=== PATIENT | female | born 1960 | race Caucasian/White ===

== ENCOUNTER 2020-04-27 09:30 | Inpatient (IN) | payer OTHER ==
[2020-04-27] MEDS ORDERED: dexAMETHasone 10 MG/ML VIAL ONE (10:21)
[2020-04-27] MEDS ORDERED: MAGNESIUM SULFATE 1 gm IVPB 1 GM/100 ML BAG IV ONE (10:22)
[2020-04-27] MEDS ORDERED: ALBUTEROL 2.5 MG/3 ML NEB SOL ONE (10:22)
[2020-04-27] MEDS ORDERED: IPRATROPIUM BROM 0.5MG/2.5ML ONE (10:22)
[2020-04-27 10:28] LABS: Absolute Lymphocytes (CBC) 0.5 K/uL (0.7-4.9); Basophils % 0.1 % (0-1.3); Hematocrit 42.1 % (36.0-45.0); Lymphocytes % 3.4 % (15.3-44.8); MPV 8.7 fL (7.6-11.3); RBC Red Blood Cell Count 4.78 M/uL (3.86-4.86)
[2020-04-27 10:54] LABS: Albumin 2.9 g/dL (3.4-5.0); Bilirubin Total 0.6 mg/dL (0.2-1.0); C-Reactive Protein 51.7 mg/L (<3.00); Protein, Total 7.6 g/dL (6.4-8.2)
--- NOTE | 2020-04-27 11:09 | RAD REPORT ---
EXAM DESCRIPTION: RAD - Chest Single View - 04/27/2020 10:58 am CLINICAL HISTORY: SOB, wheezing, cough COMPARISON: None TECHNIQUE: AP portable chest image was obtained 04/27/2020 10:58 am . FINDINGS: No focal mass or consolidation. Interstitial markings are prominent on this baseline patte rn which could be interstitial pneumonia or interstitial edema. Heart and vasculature are normal. No measurable pleural effusion and no pneumothorax. No acute bony abnormality seen. No acute aortic find ings suspected. IMPRESSION: Baseline examination showing interstitial edema or interstitial infiltrate pattern.
[2020-04-27 11:18] LABS: Blood Morphology Comment NOT SEEN (NOT SEEN); Platelet Estimate ADEQ; White Blood Cell Scan OK (OK)
--- NOTE | 2020-04-27 11:55 | EDPHYS ---
Physician Documentation [facility] Name: Miracle Spear Age: 60 yrs Sex: Female : 1960 Arrival Date: 04/27/2020 Time: 09:33 Bed 8 Private MD: Zack Siu V ED Physician Misha Newman HPI: 04/27 09:42 This 60 yrs old Female presents to ER via Wheelchair with complaints of jmm COVID+, Low O2. 09:42 The patient has shortness of breath at rest. Onset: The symptoms/episode began/occurred jmm gradually, 1.5 week(s) ago. Duration: The symptoms are continuous, and are steadily getting worse. The patient's shortness of breath is aggravated by exertion, light activity. Associated signs and symptoms: Pertinent positives: non-productive cough. This is a 60 year old female that presents to the ED with complaints of progressively worsening shortness of breath. Prescribed oral steroids and albuterol with little relief. Historical: - Allergies: 09:56 No Known Allergies; iw - Home Meds: 09:56 metformin 500 mg Oral Tb24 2 tabs 2 times per day [Active]; omeprazole 20 mg Oral cpDR iw 1 cap once daily [Active]; losartan 25 mg oral tab once daily [Active]; levothyroxine 125 mcg tab 1 tab once daily [Active]; bisoprolol-hydrochlorothiazide 10-6.25 mg oral tab 1 tab once daily [Active]; atorvastatin 40 mg oral tab 1 tab once daily [Active]; - PSHx: 09:56 None; iw - Immunization history:: Adult Immunizations not up to date. - Social history:: Smoking status: Patient denies any tobacco usage or history of. ROS: 09:42 Constitutional: Positive for body aches, chills, fatigue. jmm 09:42 Respiratory: Positive for cough, shortness of breath. 09:42 All other systems are negative. Exam: 09:42 Constitutional: This is a well developed, well nourished patient who is awake, alert, jmm and in no acute distress. Head/Face: atraumatic. Eyes: EOMI, no conjunctival erythema appreciated ENT: Moist Mucus Membranes Neck: Trachea midline, Supple Chest/axilla: Normal chest wall appearance and motion. Cardiovascular: Regular rate and rhythm. No edema appreciated Respiratory: Normal respirations, no respiratory distress appreciated Abdomen/GI: Non distended, soft Back: Normal ROM Skin: General appearance color normal MS/ Extremity: Moves all extremities, no obvious deformities appreciated, no edema noted to the lower extremities Neuro: Awake and alert, normal gait Psych: Behavior is normal, Mood is normal, Patient is cooperative and pleasant Vital Signs: 09:56 BP 154 / 73; Pulse 72; Resp 20 S; Temp 97.8(TE); Pulse Ox 86% on R/A; Weight 104.33 kg; iw Height 5 ft. 7 in. (170.18 cm); 10:50 BP 147 / 83; Pulse 73; Resp 21; Pulse Ox 98% on Nebulizer Mask; jl7 11:35 Pulse Ox 85% on R/A; iw 11:57 BP 141 / 69; Pulse 77; Resp 18; Pulse Ox 96% on 2 lpm NC; ph 13:17 BP 142 / 70; Pulse 76; Resp 20; Temp 98.2; Pulse Ox 97% on 2 lpm NC; ph 09:56 Body Mass Index 36.02 (104.33 kg, 170.18 cm) iw MDM: 09:42 Patient medically screened. marin 11:53 Data reviewed: vital signs, nurses notes. Counseling: I had a detailed discussion with aydin the patient and/or guardian regarding: the historical points, exam findings, and any diagnostic results supporting the discharge/admit diagnosis, lab results, radiology results, the need for further work-up and treatment in the hospital. 04/27 09:56 Order name: CBC with Diff; Complete Time: 11:24 [facility] 04/27 09:56 Order name: CMP; Complete Time: 11:24 [facility] 04/27 09:56 Order name: CRP; Complete Time: 11:24 [facility] 04/27 09:56 Order name: D-Dimer; Complete Time: 11:24 [facility] 04/27 09:56 Order name: Blood Culture Adult (2) [facility] 04/27 09:56 Order name: Procalcitonin; Complete Time: 11:58 [facility] 04/27 09:56 Order name: Lactate; Complete Time: 11:24 [facility] 04/27 10:35 Order name: Chest Single View XRAY; Complete Time: 11:24 [facility] 04/27 11:18 Order name: CBC Smear Scan; Complete Time: 11:24 [facility] 04/27 12:05 Order name: Troponin I [facility] 04/27 12:05 Order name: Troponin I [facility] 04/27 09:56 Order name: Saline Lock; Complete Time: 10:49 [facility] 04/27 12:02 Order name: CONS Physician Consult [facility] 04/27 13:05 Order name: Labs - recollect needed: lactate sepsis due; Complete Time: 13:15 iw Administered Medications: 09:40 Drug: Decadron - Dexamethasone 10 mg Route: IVP; Site: right wrist; jl7 13:15 Follow up: Response: No adverse reaction ph 10:46 Drug: Magnesium Sulfate 1 grams Route: IVPB; Infused Over: 1 hrs; Site: right wrist; jl7 11:50 Follow up: Response: No adverse reaction; IV Status: Completed infusion; IV Intake: ph 100ml 10:46 Drug: DuoNeb (albuterol 2.5 mg, ipratropium 0.5 mg) (3:1) (2.5 mg - 0.5 mg) 3 ml Route: jl7 Nebulizer; 13:16 Follow up: Response: No adverse reaction ph Disposition: 04/28 09:39 Co-signature as Attending Physician, Misha Newman MD I agree with the assessment and [facility] plan of care. Disposition: 04/27/20 11:55 Hospitalization ordered by Zack Siu for Observation. Preliminary diagnosis are Coronavirus infection, unspecified, Hypoxia. - Bed requested for Telemetry/MedSurg (observation). - Status is Observation. ph - Condition is Stable. - Problem is new. - Symptoms are unchanged. Signatures: Dispatcher [employer] [facility] Tamiko Cazares, RN Misha Phelps MD MD cha Mickail, Joel, PA PA [facility] Ainsley Monroe, RN Maria Esther Clinton RN Chris Sullivan ph RN RN jl7 Corrections: (The following items were deleted from the chart) 04/27 12:25 11:55 Hospitalization Ordered by Zack Siu MD for Observation. Preliminary diagnosis dw is Coronavirus infection, unspecified; Hypoxia. Bed requested for Telemetry/MedSurg (observation). Status is Observation. Condition is Stable. Problem is new. Symptoms are unchanged. [facility] 13:18 12:25 04/27/2020 11:55 Hospitalization Ordered by Zack Siu MD for Observation. ph Preliminary diagnosis is Coronavirus infection, unspecified; Hypoxia. Bed requested for Telemetry/MedSurg (observation). Status is Observation. Condition is Stable. Problem is new. Symptoms are unchanged. dw
--- NOTE | 2020-04-27 11:55 | ER ---
Nurse's Notes [facility] Name: Miracle Spear Age: 60 yrs Sex: Female : 1960 Arrival Date: 04/27/2020 Time: 09:33 Bed 8 Private MD: Zack Siu V Diagnosis: Coronavirus infection, unspecified;Hypoxia Presentation: 04/27 09:50 Chief complaint: Patient states: tested positive for COVID last Tues at [place] , has iw been having fever , SOB, wheezing O2 sat has been in the 80's at home , feeling more SOB. Coronavirus screen: cough unrelated to allergies, shortness of breath, Client presents with at least one sign or symptom that may indicate coronavirus-19. Standard/surgical mask placed on the client. Provider contacted for isolation considerations. Client reports previous positive COVID test result. Ebola Screen: Patient negative for fever greater than or equal to 101.5 degrees Fahrenheit, and additional compatible Ebola Virus Disease symptoms Patient denies exposure to infectious person. Patient denies travel to an Ebola-affected area in the 21 days before illness onset. No symptoms or risks identified at this time. Initial Sepsis Screen: Does the patient meet any 2 criteria? No. Patient's initial sepsis screen is negative. Does the patient have a suspected source of infection? No. Patient's initial sepsis screen is negative. Risk Assessment: Do you want to hurt yourself or someone else? Patient reports no desire to harm self or others. Onset of symptoms was April 19, 2020. 09:50 Method Of Arrival: Wheelchair iw 09:50 Acuity: STEVE 3 iw Historical: - Allergies: 09:56 No Known Allergies; iw - Home Meds: 09:56 metformin 500 mg Oral Tb24 2 tabs 2 times per day [Active]; omeprazole 20 mg Oral cpDR iw 1 cap once daily [Active]; losartan 25 mg oral tab once daily [Active]; levothyroxine 125 mcg tab 1 tab once daily [Active]; bisoprolol-hydrochlorothiazide 10-6.25 mg oral tab 1 tab once daily [Active]; atorvastatin 40 mg oral tab 1 tab once daily [Active]; - PSHx: 09:56 None; iw - Immunization history:: Adult Immunizations not up to date. - Social history:: Smoking status: Patient denies any tobacco usage or history of. Screenin:56 Abuse screen: Denies threats or abuse. Denies injuries from another. Nutritional ph screening: No deficits noted. Tuberculosis screening: No symptoms or risk factors identified. Fall Risk None identified. Assessment: 09:58 General: Appears in no apparent distress. comfortable, Behavior is calm, cooperative, ph agitated, Reports chills for fever for. Pain: Denies pain. Neuro: Level of Consciousness is awake, alert, obeys commands, Oriented to person, place, time, situation. Cardiovascular: Capillary refill < 3 seconds in bilateral fingers Patient's skin is warm and dry. Respiratory: Reports shortness of breath at rest cough that is pain with cough Airway is patent Respiratory effort is even, unlabored. GI: Patient currently denies abdominal pain, diarrhea, nausea, vomiting. Derm: Skin is intact, is healthy with good turgor, Skin is pink, warm \T\ dry. Musculoskeletal: Circulation, motion, and sensation intact. Range of motion: intact in all extremities. 11:35 Reassessment: O2 sat dropped to 85% on RA while pt sitting in bed, [employer] Bright notified. iw 11:57 Reassessment: Patient appears in no apparent distress at this time. Patient and/or ph family updated on plan of care and expected duration. Pain level reassessed. Vital Signs: 09:56 BP 154 / 73; Pulse 72; Resp 20 S; Temp 97.8(TE); Pulse Ox 86% on R/A; Weight 104.33 kg; iw Height 5 ft. 7 in. (170.18 cm); 10:50 BP 147 / 83; Pulse 73; Resp 21; Pulse Ox 98% on Nebulizer Mask; jl7 11:35 Pulse Ox 85% on R/A; iw 11:57 BP 141 / 69; Pulse 77; Resp 18; Pulse Ox 96% on 2 lpm NC; ph 13:17 BP 142 / 70; Pulse 76; Resp 20; Temp 98.2; Pulse Ox 97% on 2 lpm NC; ph 09:56 Body Mass Index 36.02 (104.33 kg, 170.18 cm) iw ED Course: 09:33 Patient arrived in ED. mr 09:33 Zack Siu MD is Private Physician. mr 09:39 Mickail, Deangelo, PA is PHCP. jmm 09:39 Misha Newman MD is Attending Physician. jmm 09:46 Maria Esther Ellsworth, YESSENIA is Primary Nurse. ph 09:53 Triage completed. iw 09:56 Patient has correct armband on for positive identification. Placed in gown. Bed in low ph position. Call light in reach. Side rails up X 1. Pulse ox on. NIBP on. Door closed. Noise minimized. Warm blanket given. 09:56 Arm band placed on Patient placed in an exam room, on a stretcher. ph 10:18 Initial lab(s) drawn, by me, sent to lab. Missed attempt(s): 22 gauge in left ph antecubital area. Bleeding controlled, band aid applied, catheter tip intact. 10:33 First set of blood cultures drawn by me. jl7 10:39 Second set of blood cultures drawn by ED staff. jl7 10:51 Inserted saline lock: 20 gauge in right wrist, using aseptic technique. Blood collected.jl7 10:58 Chest Single View XRAY In Process Unspecified. EDMS 11:54 Zack Siu MD is Hospitalizing Provider. m 13:16 No provider procedures requiring assistance completed. Patient admitted, IV remains in ph place. Administered Medications: 09:40 Drug: Decadron - Dexamethasone 10 mg Route: IVP; Site: right wrist; jl7 13:15 Follow up: Response: No adverse reaction ph 10:46 Drug: Magnesium Sulfate 1 grams Route: IVPB; Infused Over: 1 hrs; Site: right wrist; jl7 11:50 Follow up: Response: No adverse reaction; IV Status: Completed infusion; IV Intake: ph 100ml 10:46 Drug: DuoNeb (albuterol 2.5 mg, ipratropium 0.5 mg) (3:1) (2.5 mg - 0.5 mg) 3 ml Route: jl7 Nebulizer; 13:16 Follow up: Response: No adverse reaction ph Intake: 11:50 IV: 100ml; Total: 100ml. ph Outcome: 11:55 Decision to Hospitalize by Provider. jmm 13:16 Admitted to Med/surg accompanied by tech, via wheelchair, with oxygen, with chart, ph Report called to Jabier CASAS 13:16 Condition: good 13:18 Patient left the ED. ph Signatures: Dispatcher [employer] EDMS Deangelo Naranjo PA PA jmm Mcmahon, Maria E mr Ainsley Monroe, RN RN Maria Esther Vega, RN RN ph Chris Simpson RN RN jl7
[2020-04-27] MEDS ORDERED: ALBUTEROL 2.5 MG/3 ML NEB SOL NEB PRN (12:02)
[2020-04-27] MEDS ORDERED: IPRATROPIUM BROM 0.5MG/2.5ML NEB PRN (12:02)
[2020-04-27] MEDS ORDERED: ACETAMINOPHEN 500 MG TAB PO PRN (12:02)
[2020-04-27] MEDS ORDERED: ONDANSETRON 4 MG/2 ML VIAL IV PRN (12:02)
[2020-04-27] MEDS ORDERED: IVERMECTIN 3 MG TABLET PO ONE (13:00)
[2020-04-27 13:31] VITALS: BMI 36.8
[2020-04-27] MEDS ORDERED: Remdesivir 200 MG in NA CHLORIDE 0.9% 250 ML IV ONE (15:30)
[2020-04-27] MEDS: METHYLPREDNISOLONE 40 MG INJ IV SCH (16:27)
[2020-04-27 20:04] LABS: MPV 8.6 fL (7.6-11.3)
[2020-04-27 20:07] LABS: Platelet Estimate ADEQ
--- NOTE | 2020-04-27 20:48 | P.HP ---
Certification for Inpatient Patient admitted to: Inpatient With expected LOS: >2 Midnights Practitioner: I am a practitioner with admitting privileges, knowledge of patient current condition, hospital course, and medical plan of care. Services: Services provided to patient in accordance with Admission requirements found in Title 42 Section 412.3 of the Code of Federal Regulations Patient History Date of Service: 04/27/20 Reason for admission: SHORT OF BREATH History of Present Illness: CINTHIA HAS AQCUIRED COVID 19 INFECTION ABOUT A WEEK AGO. SHE HAS BEEN GIVEN STEROIDS, IVERMECTIN AND INFUSION THERAPY. SHE CONTINUES TO GET MORE HYPOXIC WITH OXYGEN SATURATION DROPPING TO 70% WHEN SHE WALKS A LITTLE. SHE IS NOW IN [facility] AND STARTED ON REMDESIVIR IN ADDTION TO IV STEROIDS AND REPEAT COURSE OF IVERMECTIN. Allergies No Known Allergies Allergy (Verified 04/27/20 13:32) Home Medications: Atorvastatin Calcium [Lipitor] 40 mg PO BEDTIME 04/27/20 Bisoprolol/Hydrochlorothiazide [Bisoprolol-Hctz 10-6.25 mg Tab] 1 each PO DAILY 04/27/20 Levothyroxine [Synthroid] 125 mcg PO [id number] 04/27/20 Losartan Potassium 25 mg PO DAILY 04/27/20 Metformin HCl [Metformin HCl ER] 2 tab PO ACS 04/27/20 Omeprazole 20 mg PO DAILY 04/27/20 - Past Medical/Surgical History Has patient received pneumonia vaccine in the past: No Diabetic: Yes -: DM, HTN, HIGH CHOLESTEROL. - Social History Smoking Status: Never smoker Alcohol use: No CD- Drugs: No Caffeine use: Yes Place of Residence: Home Review of Systems 10-point ROS is otherwise unremarkable General: Weakness, Malaise Respiratory: Shortness of Breath Physical Examination - Vital Signs Temperature: 96.7 F Blood Pressure: 156/72 Pulse: 72 Respirations: 16 Pulse Ox (%): 89 - Physical Exam General: Alert, Oriented x3, Mild distress, Moderate distress HEENT: Atraumatic, PERRLA, Mucous membr. moist/pink, EOMI, Sclerae nonicteric Neck: Supple, 2+ carotid pulse no bruit, No LAD, Without JVD or thyroid abnormality Respiratory: Diminished Cardiovascular: Regular rate/rhythm, Normal S1 S2 Gastrointestinal: Normal bowel sounds, No tenderness Musculoskeletal: No tenderness Integumentary: No rashes Neurological: Normal gait, Normal speech, Normal strength at 5/5 x4 extr, Normal tone, Normal affect Lymphatics: No axilla or inguinal lymphadenopathy - Studies Laboratory Data (last 24 hrs) 04/27/20 10:15: Sodium 135 L, Potassium 4.0, BUN 17, Creatinine 0.82, Glucose 301 H, Total Bilirubin 0.6, AST 25, ALT 42, Alkaline Phosphatase 79 04/27/20 10:15: WBC 14.20 H, Hgb 14.3, Hct 42.1, Plt Count 322 Assessment and Plan - Problems (Diagnosis) (1) Pneumonia due to COVID-19 virus Current Visit: Yes Status: Acute Plan: IV REMDESIVIR IV STEROIDS REPEAT IVERMECTIN COURSE. SHE ALREADY HAS HAD INFUSION [facility] AT [facility]. PROGNOSIS GUARDED. - Advance Directives Does patient have a Living Will: No Does patient have a Durable POA for Healthcare: No
[2020-04-27] MEDS: ATORVASTATIN 40 MG TAB PO SCH (20:58)
[2020-04-27] MEDS: APIXABAN 2.5 MG TABLET PO SCH (20:59)
[2020-04-28] MEDS: METHYLPREDNISOLONE 40 MG INJ IV SCH ×3 (00:16→16:45)
[2020-04-28 04:12] LABS: Absolute Lymphocytes (CBC) 0.5 K/uL (0.7-4.9); Basophils % 0.1 % (0-1.3); Hematocrit 41.4 % (36.0-45.0); Lymphocytes % 4.1 % (15.3-44.8); RBC Red Blood Cell Count 4.68 M/uL (3.86-4.86)
[2020-04-28 04:24] LABS: Albumin 2.7 g/dL (3.4-5.0); Bilirubin Direct 0.2 mg/dL (0-0.2); Bilirubin Total 0.6 mg/dL (0.2-1.0); Potassium 4.4 mmol/L (3.5-5.1)
[2020-04-28] MEDS: LEVOTHYROXINE SOD 0.125 MG TAB PO SCH (06:08)
[2020-04-28] MEDS: PANTOPRAZOLE 40MG TABLET PO SCH (06:08)
[2020-04-28] MEDS: APIXABAN 2.5 MG TABLET PO SCH ×2 (08:00→20:52)
[2020-04-28] MEDS: ASPIRIN EC 81 MG TAB PO SCH (08:01)
[2020-04-28] MEDS: LOSARTAN POTASSIUM 50 MG TABLET PO SCH (08:01)
[2020-04-28] MEDS: BISOPROLOL/HCTZ 5/6.25MG TAB PO SCH (08:08)
[2020-04-28] MEDS: BISOPROLOL 5 MG TABLET PO SCH (08:08)
[2020-04-28] MEDS ORDERED: BISOPROLOL PO SCH (09:00)
[2020-04-28] MEDS ORDERED: HCTZ PO SCH (09:00)
[2020-04-28] MEDS: Remdesivir 100 MG in NA CHLORIDE 0.9% 250 ML IV SCH (09:30)
[2020-04-28] MEDS ORDERED: METFORMIN ER 500 MG TAB PO SCH (16:30)
[2020-04-28] MEDS: ATORVASTATIN 40 MG TAB PO SCH (20:52)
[2020-04-29] MEDS: METHYLPREDNISOLONE 40 MG INJ IV SCH ×3 (01:10→18:10)
--- NOTE | 2020-04-29 01:38 | PN ---
Subjective: Ms. Spear is doing a lot better compared to yesterday. She is able to move around th e room without much shortness of breath. Denies chest pain, nausea, vomiting. Physical Examination: Vital Signs: Blood pressure 157/72, pulse is 68, temperature 98.9. HEENT: No JVD. No carotid bruits. I did a TeleVisit with her. She looks comfortable, sitting without much distress. Her pulse ox is d own to 88% on 4 L nasal cannula. Laboratory Data: White count is down to 13,000. CRP was 51 on admission. Assessment And Plan: COVID pneumonia. Prognosis is fair. The patient has steroids, ivermectin at h ome already. She has been on anticoagulation now in the hospital, using Eliquis, and started remdesi vir drip on a daily basis since yesterday. Today, she has finished her second dose. Prognosis is gu arded. RVD/MODL Voice ID: [id number] Report ID: [id number]
[2020-04-29 03:56] LABS: Absolute Lymphocytes (CBC) 0.7 K/uL (0.7-4.9); Basophils % 0.2 % (0-1.3); Hematocrit 39.4 % (36.0-45.0); Lymphocytes % 5.6 % (15.3-44.8); MPV 8.6 fL (7.6-11.3); RBC Red Blood Cell Count 4.45 M/uL (3.86-4.86)
[2020-04-29 04:09] LABS: Albumin 2.5 g/dL (3.4-5.0); Bilirubin Direct 0.2 mg/dL (0-0.2); Bilirubin Total 0.5 mg/dL (0.2-1.0); Protein, Total 6.6 g/dL (6.4-8.2)
[2020-04-29] MEDS: LEVOTHYROXINE SOD 0.125 MG TAB PO SCH (06:11)
[2020-04-29] MEDS: PANTOPRAZOLE 40MG TABLET PO SCH (06:11)
[2020-04-29] MEDS: BISOPROLOL/HCTZ 5/6.25MG TAB PO SCH (09:00)
[2020-04-29] MEDS: APIXABAN 2.5 MG TABLET PO SCH (09:00)
[2020-04-29] MEDS: BISOPROLOL 5 MG TABLET PO SCH (09:54)
[2020-04-29] MEDS: ASPIRIN EC 81 MG TAB PO SCH (09:54)
[2020-04-29] MEDS: LOSARTAN POTASSIUM 50 MG TABLET PO SCH (09:55)
[2020-04-29] MEDS: Remdesivir 100 MG in NA CHLORIDE 0.9% 250 ML IV SCH (10:08)
--- NOTE | 2020-04-29 17:31 | P.CNS ---
Date of Consult: 04/29/20 Reason for Consult: Per digna failure from camilo virus Chief Complaint: Respiratory failure History of Present Illness: Patient is 60 years of age when diagnosed with camilo virus infection about a week ago was treated with ivermectin and steroids as an outpatient became progressively worse more short of breath came here to the emergency room currently she is tachypneic dyspnea on mild exertion Allergies No Known Allergies Allergy (Verified 04/27/20 13:32) Home Medications: Atorvastatin Calcium [Lipitor] 40 mg PO BEDTIME 04/27/20 Bisoprolol/Hydrochlorothiazide [Bisoprolol-Hctz 10-6.25 mg Tab] 1 each PO DAILY 04/27/20 Levothyroxine [Synthroid] 125 mcg PO [id number] 04/27/20 Losartan Potassium 25 mg PO DAILY 04/27/20 Metformin HCl [Metformin HCl ER] 2 tab PO ACS 04/27/20 Omeprazole 20 mg PO DAILY 04/27/20 - Past Medical/Surgical History Diabetic: Yes -: DM, HTN, HIGH CHOLESTEROL. - Social History Alcohol use: No CD- Drugs: No Caffeine use: Yes Place of Residence: Home Review of Systems General: Weakness Respiratory: Shortness of Breath Physical Examination Temp Pulse Resp BP Pulse Ox 97.1 F 62 21 H 131/68 91 04/29/20 16:00 04/29/20 16:00 04/29/20 16:00 04/29/20 16:00 04/29/20 16:00 General: Alert Neck: Supple Respiratory: Clear to auscultation bilaterally Cardiovascular: No edema, Regular rate/rhythm - Problems (1) Pneumonia due to COVID-19 virus Current Visit: Yes Status: Acute Plan: Patient is 60 years of age admitted with respiratory failure from coronal wire was little short of breath this morning at [facility] her on some high-flow oxygen patient is also very apprehensive chest x-ray shows some interstitial change the labs reviewed patient is on steroids Got Remdesmir currently on 60% FiO2 continue to monitor
[2020-04-29] MEDS: ATORVASTATIN 40 MG TAB PO SCH (20:28)
[2020-04-29] MEDS: APIXABAN 5 MG TABLET PO SCH (20:28)
[2020-04-30] MEDS: METHYLPREDNISOLONE 40 MG INJ IV SCH (00:19)
[2020-04-30] MEDS ORDERED: GLUCAGON 1 MG/VIAL IM PRN (01:10)
[2020-04-30] MEDS ORDERED: D50W 25 GM/50 ML SYRINGE IV PRN (01:10)
--- NOTE | 2020-04-30 01:23 | PN ---
Subjective: Miracle is more short of breath today. Dr. Morris put her on high-flow oxygen at ___ L nasal cannula. Objective: Vital Signs: Blood pressure 131/68, temperature 97.1. I called her a few times to get a telehealth visit done today and she did not respond to it so far. Assessment And Planning: COVID pneumonia. She has received multiple different treatments so far. I ntravenous infusion of antibody, ivermectin, steroids IV and remdesivir IV. So far she has not shown a good response yet. The patient's called and I discussed everything. RVD/MODL Voice ID: [id number] Report ID: [id number]
[2020-04-30] MEDS: LEVOTHYROXINE SOD 0.125 MG TAB PO SCH (05:30)
[2020-04-30] MEDS: PANTOPRAZOLE 40MG TABLET PO SCH (05:30)
[2020-04-30 05:33] LABS: ALT/SGPT 45 U/L (12-78); AST/SGOT 17 U/L (15-37); Albumin 2.5 g/dL (3.4-5.0); Bilirubin Direct 0.2 mg/dL (0-0.2); Bilirubin Total 0.6 mg/dL (0.2-1.0); Ferritin 708.1 ng/mL (8-388); Protein, Total 6.3 g/dL (6.4-8.2)
[2020-04-30 05:38] LABS: Alkaline Phosphatase ND U/L (45-117)
[2020-04-30] MEDS ORDERED: IVERMECTIN 3 MG TABLET PO SCH (08:00)
[2020-04-30] MEDS ORDERED: METHYLPREDNISOLONE 125 MG INJ IV SCH (09:00)
[2020-04-30] MEDS: Remdesivir 100 MG in NA CHLORIDE 0.9% 250 ML IV SCH (09:26)
[2020-04-30] MEDS: ASPIRIN EC 81 MG TAB PO SCH (09:27)
[2020-04-30] MEDS: ASCORBIC ACID 500 MG TABLET PO SCH ×2 (09:27→21:15)
[2020-04-30] MEDS: BISOPROLOL/HCTZ 5/6.25MG TAB PO SCH (09:27)
[2020-04-30] MEDS: VITAMIN D 5,000 UNIT CAP PO SCH (09:27)
[2020-04-30] MEDS: LOSARTAN POTASSIUM 50 MG TABLET PO SCH (09:28)
[2020-04-30] MEDS: ZINC SULFATE 220 MG CAP PO SCH (09:29)
[2020-04-30] MEDS: INSULIN -REGULAR HUMAN 50 UNIT/0.5 ML ML SQ SCH ×4 (09:29→21:00)
[2020-04-30] MEDS: BISOPROLOL 5 MG TABLET PO SCH (10:07)
[2020-04-30] MEDS: APIXABAN 5 MG TABLET PO SCH ×2 (10:08→21:14)
--- NOTE | 2020-04-30 13:06 | P.PN ---
Subjective Date of Service: 04/30/20 Chief Complaint: Respiratory failure Patient is improving slightly higher oxygen requirements are down to 60% still on high-flow still has dyspnea on mild exertion Review of Systems General: Weakness Respiratory: Shortness of Breath Physical Examination - Vital Signs Temperature: 96.8 F Blood Pressure: 139/67 Pulse: 66 Respirations: 22 Pulse Ox (%): 90 Assessment & Plan - Problems (Diagnosis) (1) Pneumonia due to COVID-19 virus Current Visit: Yes Status: Acute Plan: Patient admitted with respiratory failure from camilo virus are oxygen requirements are down to 60% subjectively feels better continue with steroids patient has hyperglycemia increase insulin reduce dose of Solu-Medrol patient is very hyperglycemia labs reviewed
[2020-04-30] MEDS: METHYLPREDNISOLONE 125 MG INJ IV SCH (17:25)
[2020-04-30 19:20] LABS: MPV 8.6 fL (7.6-11.3)
[2020-04-30 20:17] LABS: Platelet Estimate INCR
[2020-04-30] MEDS ORDERED: MELATONIN 5 MG TABLET PO SCH (21:00)
[2020-04-30] MEDS: ATORVASTATIN 40 MG TAB PO SCH (21:15)
--- NOTE | 2020-04-30 22:18 | PN ---
Subjective: Miracle is doing better. Denies any chest pain, nausea, vomiting. Her breathing has impr power somewhat. She is on 60% FiO2, high-flow oxygen 15 L, pulse ox is doing about 90%. Recently, rafiq acosta had [id number] shortness of breath. On lab examination, her sugar has gone up to 453 with IV steroids. Assessment And Planning: We are repeating a course of ivermectin, increasing dose of IV steroids fol lowing her remdesivir treatment so far. Her CRP has reduced down to 15. Hopefully, she continues to improve. Her D-dimer is negative so far. RVD/MODL Voice ID: [id number] Report ID: [id number]
[2020-05-01] MEDS: METHYLPREDNISOLONE 125 MG INJ IV SCH ×2 (01:04→09:05)
[2020-05-01 05:03] LABS: Alkaline Phosphatase ND U/L (45-117)
[2020-05-01 05:26] LABS: ALT/SGPT 44 U/L (12-78); AST/SGOT 19 U/L (15-37); Albumin 2.4 g/dL (3.4-5.0); Bilirubin Direct 0.2 mg/dL (0-0.2); Bilirubin Total 0.6 mg/dL (0.2-1.0); Protein, Total 6.1 g/dL (6.4-8.2)
[2020-05-01] MEDS: LEVOTHYROXINE SOD 0.125 MG TAB PO SCH (05:52)
[2020-05-01] MEDS: PANTOPRAZOLE 40MG TABLET PO SCH (05:52)
[2020-05-01] MEDS ORDERED: INSULIN 70/30 100 UNITS/ML SQ SCH (08:00)
[2020-05-01] MEDS ORDERED: INSULIN GLARGINE 100 UNITS/ML SQ SCH (08:00)
[2020-05-01] MEDS: INSULIN -REGULAR HUMAN 50 UNIT/0.5 ML ML SQ SCH ×3 (08:31→17:00)
[2020-05-01] MEDS: BISOPROLOL 5 MG TABLET PO SCH (09:02)
[2020-05-01] MEDS: BISOPROLOL/HCTZ 5/6.25MG TAB PO SCH (09:02)
[2020-05-01] MEDS: LOSARTAN POTASSIUM 50 MG TABLET PO SCH (09:03)
[2020-05-01] MEDS: ASPIRIN EC 81 MG TAB PO SCH (09:04)
[2020-05-01] MEDS: APIXABAN 5 MG TABLET PO SCH (09:05)
[2020-05-01] MEDS: VITAMIN D 5,000 UNIT CAP PO SCH (09:05)
[2020-05-01] MEDS: ASCORBIC ACID 500 MG TABLET PO SCH (09:05)
[2020-05-01] MEDS: Remdesivir 100 MG in NA CHLORIDE 0.9% 250 ML IV SCH (09:05)
[2020-05-01] MEDS: ZINC SULFATE 220 MG CAP PO SCH (09:05)
--- NOTE | 2020-05-01 09:39 | P.PN ---
Subjective Date of Service: 05/01/20 Chief Complaint: Respiratory failure Patient is doing much better looking well oxygen requirements are declining still has some shortness of breath on exertion Review of Systems Respiratory: Shortness of Breath Physical Examination - Vital Signs Temperature: 97 F Blood Pressure: 140/65 Pulse: 66 Respirations: 22 Pulse Ox (%): 91 - Physical Exam General: Alert, Oriented x3, Mild distress Assessment & Plan - Problems (Diagnosis) (1) Pneumonia due to COVID-19 virus Current Visit: Yes Status: Acute Plan: Respiratory failure patient is improving oxygen requirements declining blood sugars elevated plan to titrate her O2 down with nasal cannula oxygen will discharge today oxygen has been ordered reduce dose of Solu-Medrol continue with Eliquis and prednisone at home
[2020-05-01 16:57] VITALS: BP 129/85; TEMP 96.8
[2020-05-01 17:40] VITALS: O2SAT 90
[2020-05-01] MEDS ORDERED: predniSONE 20 MG TAB PO SCH (21:00)
--- NOTE | 2020-05-03 15:44 | P.DS ---
Admission Date: 04/27/20 Discharge Date: 05/03/20 Disposition: ROUTINE DISCHARGE Discharge Condition: FAIR Reason for Admission: Respiratory failure - Problems (1) Pneumonia due to COVID-19 virus Status: Acute Brief History of Present Illness: CINTHIA HAS AQCUIRED COVID 19 INFECTION ABOUT A WEEK AGO. SHE HAS BEEN GIVEN STEROIDS, IVERMECTIN AND INFUSION THERAPY. SHE CONTINUES TO GET MORE HYPOXIC WITH OXYGEN SATURATION DROPPING TO 70% WHEN SHE WALKS A LITTLE. SHE IS NOW IN [facility] AND STARTED ON REMDESIVIR IN ADDTION TO IV STEROIDS AND REPEAT COURSE OF IVERMECTIN. Hospital Course: CINTHIA HAS COVID PNEUMONIA. SHE IMPROVES AFTER IV STEROIDS, IV REMDESIVIR, SHE ALSO HAS BEEN GIVEN MONOCOLNAL ANTIBODIES BEFORE ADMISSION TO [facility]. SHE HAS HAD COURSE OF HIGH DOSE OF STEROIDS INPATIENT AND ANOTHER COURSE OF IVERMECTIN. SHE IMPROVED TO BE DOWN TO 4LT NC ON OXYGEN AND WAS ABLE TO GO HOME. WE WILL CONTINUE HIGH DOSE OF STEROIDS LONG WE NEED. I HAVE GIVEN INSULIN TO HER GLUCOSE IS VERY HIGH. Vital Signs/Physical Exam: Temp Pulse Resp BP Pulse Ox 96.8 F 66 22 H 129/85 90 L 05/01/20 16:00 05/01/20 16:00 05/01/20 16:00 05/01/20 16:00 05/01/20 16:00 Laboratory Data at Discharge: WBC 12.70 K/uL (4.3-10.9) H 04/29/20 03:25 Hgb 13.2 g/dL (12.0-15.0) 04/29/20 03:25 Hct 39.4 % (36.0-45.0) 04/29/20 03:25 Plt Count 485 K/uL (152-406) H D 04/30/20 18:51 Sodium 137 mmol/L (136-145) 04/28/20 03:28 Potassium 4.4 mmol/L (3.5-5.1) 04/28/20 03:28 BUN 23 mg/dL (7-18) H 04/28/20 03:28 Creatinine 0.70 mg/dL (0.55-1.3) 04/28/20 03:28 Glucose 436 mg/dL (74-106) H* 04/30/20 12:58 Total Bilirubin 0.6 mg/dL (0.2-1.0) 05/01/20 03:58 AST 19 U/L (15-37) 05/01/20 03:58 ALT 44 U/L (12-78) 05/01/20 03:58 Alkaline Phosphatase ND 05/01/20 03:58 Troponin I < 0.02 ng/mL (0.0-0.045) 04/27/20 19:54 Home Medications: Atorvastatin Calcium [Lipitor] 40 mg PO BEDTIME 04/27/20 Bisoprolol/Hydrochlorothiazide [Bisoprolol-Hctz 10-6.25 mg Tab] 1 each PO DAILY 04/27/20 Levothyroxine [Synthroid*] 125 mcg PO [id number] 04/27/20 Losartan Potassium 25 mg PO DAILY 04/27/20 Metformin HCl [Metformin HCl ER] 2 tab PO ACS 04/27/20 Omeprazole 20 mg PO DAILY 04/27/20 Apixaban [Eliquis] 5 mg PO BID #60 tablet 05/01/20 Insulin Glargine Human [Lantus*] 20 units SQ DAILY WITH BREAKFAST #10 ml 05/01/20 predniSONE [Prednisone*] 20 mg PO BID #60 tab 05/01/20 New Medications: Apixaban [Eliquis] 5 mg PO BID #60 tablet Insulin Glargine Human [Lantus*] 20 units SQ DAILY WITH BREAKFAST #10 ml predniSONE [Prednisone*] 20 mg PO BID #60 tab Followup: Shamar Mcwilliams MD [ACTIVE - CAN ADMIT] - 1-2 Weeks (call to schedule an appointment ) Zack Siu MD [Primary Care Provider] - 1-2 Weeks (call to schedule an appointment )
== END 2020-05-01 18:05 | disposition home or self-care (01) | DRG 177 ==
LOC: ER 09:30 → ERHOLD 12:00 → 4TH 13:06
PROVIDERS: ADMIT Internal Medicine; ATTEND Internal Medicine
PROC: 5A09457 Assistance with Respiratory Ventilation, 24-96 Consecutive Hours, Continuous Positive Airway Pressure (ICD-10-PCS; principal; 2020-04-27)
PROC: XW033E5 Introduction of Remdesivir Anti-infective into Peripheral Vein, Percutaneous Approach, New Technology Group 5 (ICD-10-PCS; 2020-04-27)
DX: U07.1 COVID-19 (principal); J12.82 Pneumonia due to coronavirus disease 2019; J96.91 Respiratory failure, unspecified with hypoxia; I10 Essential (primary) hypertension; E11.65 Type 2 diabetes mellitus with hyperglycemia; Z79.84 Long term (current) use of oral hypoglycemic drugs; Z79.890 Hormone replacement therapy; Z79.899 Other long term (current) drug therapy; Z79.01 Long term (current) use of anticoagulants; Z79.52 Long term (current) use of systemic steroids
CPT/HCPCS: 36415; 71045; 80048; 80053; 80076; 82728; 82947; 83605; 83880; 84145; 84484; 85025; 85049; 85379; 86140; 87040; 94002; 94003; 94760; 96365; 96375; 99285; J1100; J1815; J2920; J2930; J3475; J7050